=== PATIENT | female | born 1975 | race Caucasian/White ===

== ENCOUNTER 2021-07-13 15:59 | Emergency (ER) | payer BC ==
--- NOTE | 2021-07-13 16:23 | EDM.PDOC ---
ED HPI GENERAL MEDICAL PROBLEM - General Stated Complaint: PAIN BEHIND EAR AND HEAD Time Seen by Provider: 07/13/21 16:23 Source of Information: Reports: Patient History Limitations: Reports: No Limitations - History of Present Illness INITIAL COMMENTS - FREE TEXT/NARRATIVE: Patient comes emergency department today with complaints of stiffness tightness and inability to move her head or neck. This patient yesterday in the afternoon started having some pain in her right neck and difficulty moving her head. She woke up in the morning had some stiffness in the base of her skull and right neck and throughout the day it is gotten worse to the point where she is having pain and stiffness and unable to move her head. She has had no recent falls trauma or injury. She has no headache visual acuity changes. No diplopia. No paresthesias of her upper or lower extremities. No change in the functionality of her upper or lower extremities. She did try some Flexeril without much improvement as well as some ibuprofen. She has quite a bit of stiffness and difficulty moving her head. Right Lower Head Pain Score (Numeric/FACES): 6 - Related Data Allergies Allergy/AdvReac Type Severity Reaction Status Date / Time No Known Drug Allergies Allergy Other Verified 02/02/15 02:12 Home Meds: Home Meds Hydrochlorothiazide 12.5 mg PO DAILY 09/25/14 [History] Labetalol HCl [Labetalol] 100 mg PO BID 09/25/14 [History] buPROPion [Wellbutrin XL] 300 mg PO BEDTIME 09/25/14 [History] Naproxen 500 mg PO ASDIRECTED #15 tablet 07/13/21 [Rx] Orphenadrine [Norflex] 100 mg PO BID PRN #9 tab 07/13/21 [Rx] ED ROS ENT - Review of Systems Review Of Systems: Comprehensive ROS is negative, except as noted in HPI. ED EXAM, ENT - Physical Exam Exam: See Below Exam Limited By: No Limitations General Appearance: Alert, WD/WN, No Apparent Distress Eye Exam: Bilateral Eye: EOMI, PERRL Ears: Normal External Exam, Normal Canal, Normal TMs Nose: Normal Inspection, Normal Mucousa Mouth/Throat: Normal Inspection, Normal Gums, Normal Lips, Normal Oropharynx, Normal Teeth Head: Atraumatic, Normocephalic. No: Scalp Tenderness Neck: Supple, Non-Tender. No: Full Range of Motion (She has quite a bit of reduction of rotation of her head. There is no point tenderness on the entire to the neck. There is no tenderness down the midline spine.), Lymphadenopathy (L), Lymphadenopathy (R), Tender Lateral, Tender Midline Respiratory/Chest: No Respiratory Distress, Lungs Clear, Normal Breath Sounds, No Accessory Muscle Use, Chest Non-Tender Cardiovascular: Normal Peripheral Pulses, Regular Rate, Rhythm GI/Abdominal: Normal Bowel Sounds, Soft, Non-Tender (Female) Exam: Deferred Rectal (Female) Exam: Deferred Back: Normal Inspection, Full Range of Motion Extremities: Normal Inspection, Normal Range of Motion, Non-Tender, No Pedal Edema, Normal Capillary Refill Neurological: Alert, Oriented, CN II-XII Intact, Normal Cognition, Normal Gait, Normal Reflexes, No Motor/Sensory Deficits, Other (There is no tenderness on the temporal or cords in that area.) Psychiatric: Normal Affect, Normal Mood Skin: Warm, Dry, Intact, Normal Color, No Rash Course - Vital Signs Last Recorded V/S: Last Vital Signs Temp 98.1 F 07/13/21 16:10 Pulse 83 07/13/21 16:10 Resp 16 07/13/21 16:10 BP 146/71 H 07/13/21 16:10 Pulse Ox 98 07/13/21 16:10 - Orders/Labs/Meds Meds: Medications Discontinued Medications Generic Name Dose Route Start Last Admin Trade Name [place] PRN Reason Stop Dose Admin Ketorolac Tromethamine 30 mg 07/13/21 16:30 07/13/21 16:46 Ketorolac 30 Mg/Ml Sdv IM 07/13/21 16:31 30 mg ONETIME ONE Administration Naproxen 1 packet 07/13/21 16:52 07/13/21 17:35 Take Home: Naproxen 500 Mg Tab, 4 Tab Pack PO 07/13/21 16:53 1 packet ONETIME ONE Administration Orphenadrine Citrate 60 mg 07/13/21 16:30 07/13/21 16:46 Orphenadrine 60 Mg/2 Ml Inj IM 07/13/21 16:31 60 mg NOW STA Administration Orphenadrine Citrate 1 packet 07/13/21 16:52 07/13/21 17:35 Take Home: Orphenadrine 100 Mg Tab.Er, 4 Tab Pack PO 07/13/21 16:53 1 packet ONETIME ONE Administration - Re-Assessments/Exams Free Text/Narrative Re-Assessment/Exam: 07/13/21 16:50 Norflex 60 mg IM. Ketorolac 30 mg IM. She had marked improvement of her symptoms. PT and home exercised are going to be paramount. There is no concerning neurological signs and no history of trauma so imaging is not indicated. We will refer to PT. She is comfortable with this plan and her questions answered. Departure - Departure Time of Disposition: 16:53 Disposition: Home, Self-Care 01 Clinical Impression: Torticollis, acute - Discharge Information *PRESCRIPTION DRUG MONITORING PROGRAM REVIEWED*: Not Applicable *COPY OF PRESCRIPTION DRUG MONITORING REPORT IN PATIENT RBANDI: Not Applicable Prescriptions: Naproxen 500 mg PO ASDIRECTED #15 tablet Orphenadrine [Norflex] 100 mg PO BID PRN #9 tab PRN Reason: Spasms Instructions: Pain Medicine Instructions, [id number], Acute Torticollis, Adult, Heat Therapy, [id number] Referrals: Nell Danielle MD [Primary Care Provider] - Forms: ED Department Discharge Additional Instructions: Tylenol as needed for pain. Naprox 1 tablet twice daily for 2 days and then PRN. Take home pack from the ED and RX sent to the pharmacy. Norflex 1 tablet twice daily as needed for pain spasm stiffness. Take home pack from the ED and RX sent to the pharmacy. For the neck exercises as given from the ED. Complete the 4 exercises 12 reps three times 4 times a day. Also complete shoulder rolls in similar fashion. See physical therapy tomorrow for further guidance. Heat to the area as much as possible see discharge instructions. Return to the ED if new or worsening symptoms. Recheck with PCP in 1 week.
[2021-07-13] MEDS ORDERED: Ketorolac 30 MG/ML SDV IM ONE (16:30)
[2021-07-13] MEDS ORDERED: Orphenadrine 60 MG/2 ML Inj IM STA (16:30)
[2021-07-13 16:44] VITALS: BP 146/71; PULSE 83
[2021-07-13] MEDS ORDERED: Take Home: Naproxen 500 MG Tab, 4 Tab Pack PO ONE (16:52)
[2021-07-13] MEDS ORDERED: Take Home: Orphenadrine 100 MG Tab.ER, 4 Tab Pack PO ONE (16:52)
== END 2021-07-13 17:38 | disposition home or self-care (01) ==
LOC: VM.ED 15:59
DX: M43.6 Torticollis (principal)
CPT/HCPCS: 96372; 99283; A9270-GY; J1885; J2360

== ENCOUNTER 2023-04-04 10:11 | Day surgery (SDC) | payer BC ==
[~2023-04-04 10:11] MED LIST: Lactated Ringers 1,000 ML IV SCH
[2023-04-04] MEDS ORDERED: Propofol 200 MG/20 ML SDV ONE ×2 (11:32→12:00)
[2023-04-04] MEDS ORDERED: Midazolam 1 MG/ML 2 ML SDV ONE (11:32)
[2023-04-04] MEDS ORDERED: fentaNYL 100 MCG/2 ML SDV ONE (11:34)
[2023-04-04 12:42] VITALS: BP 122/61; PULSE 66
== END 2023-04-04 13:02 | disposition home or self-care (01) ==
LOC: VM.SDS 10:11
PROVIDERS: ATTEND Family Medicine
DX: Z12.11 Encounter for screening for malignant neoplasm of colon (principal); D12.3 Benign neoplasm of transverse colon; D12.4 Benign neoplasm of descending colon; K62.1 Rectal polyp; I10 Essential (primary) hypertension; K21.9 Gastro-esophageal reflux disease without esophagitis; E28.2 Polycystic ovarian syndrome; F33.0 Major depressive disorder, recurrent, mild; E66.01 Morbid (severe) obesity due to excess calories; Z83.71 Family history of colonic polyps; Z90.49 Acquired absence of other specified parts of digestive tract; Z79.84 Long term (current) use of oral hypoglycemic drugs; Z79.899 Other long term (current) drug therapy; Z68.41 Body mass index [BMI] 40.0-44.9, adult
CPT/HCPCS: 00812; J2250; J2704; J3010; J7120